=== PATIENT | male | born 1945 | race Caucasian/White ===

== ENCOUNTER 2017-03-03 18:44 | Emergency (ER) | payer OTHER, MEDICARE ==
[2017-03-03 19:32] LABS: Hematocrit 42 % (42-52); Hemoglobin 13.5 g/dl (14.0-18.0); Mean Corpuscular HGB Conc 32 g/dl (31-36); Mean Corpuscular Hemoglobin 29 pg (27-31); Mean Corpuscular Volume 90 fL (80-94); Mean Platelet Volume 9 um3 (7.4-10.4); Red Blood Count 4.63 10^6/ul (4.0-5.4); Red Cell Distribution Width 16 % (10.5-15); White Blood Count 5.6 10^3/ul (3.5-10.8)
[2017-03-03 19:35] VITALS: BP 97/61
[2017-03-03 19:47] LABS: Albumin 4.1 g/dL (3.2-5.2); BUN/Creatinine Ratio 23.6 (8-20); Calcium 9.1 mg/dL (8.6-10.3); EGFR African American 60.1 (>60); EGFR Non-African American 46.7 (>60); Potassium 4.2 mmol/L (3.5-5.0); Total Bilirubin 0.7 mg/dL (0.2-1.0); Total Protein 7.1 g/dL (6.4-8.9)
[2017-03-03 19:49] LABS: Troponin I 0.03 ng/mL (<0.04)
--- NOTE | 2017-03-03 19:57 | RAD ---
INDICATION: Short of breath COMPARISON: March 07, 2016 TECHNIQUE: PA and lateral dual-energy views were obtained. FINDINGS: Bones/Soft Tissues: There are no acute bony findings. There is a left-sided cardiac pacemaker/defibrillator. There is sternotomy/CABG Cardiomediastinal: The cardiac silhouette, central pulmonary vessels, and interstitium are mildly prominent consistent with mild interstitial congestion. Lungs: No focal consolidative changes. Pleura: There are no pleural effusions. Other: None IMPRESSION: POSTOPERATIVE CHANGES. MINOR INTERSTITIAL CONGESTION.
[2017-03-03] MEDS ORDERED: Furosemide IV* 10 MG/ML VIAL (40 MG) IV ONE (20:01)
--- NOTE | 2017-03-03 20:15 | ED ---
Alen Pride Alfonso, scribed for Gerhard Degroot MD on 03/03/17 at 1921 . Shortness of Breath - HPI Summary HPI Summary: This patient is a 72 year old male presenting to [facility] c/o worsening SOB which began two weeks ago. He reports "if I walk 20 feet I get tired." Symptoms aggravated by exertion and alleviated by nothing. He also c/o a throbbing frontal headache secondary to exertion and chest pain described as a discomfort. He denies using nasal cannula O2 at home. PMHx of sleep apnea, COPD , and CHF. - History of Current Complaint Chief Complaint: EDRespiratoryDistress Time Seen by Provider: 03/03/17 19:14 Hx Obtained From: Patient Onset/Duration: Sudden Onset, Lasting Weeks - 2 weeks, Worse Since Timing: Constant Current Severity: Mild Dyspnea At: Exertion Aggrevating Factors: Nothing - Exertion Alleviating Factors: Nothing Associated Signs & Symptoms: Chest Pain Unrelated to Cough - Discomfort - Allergy/Home Medications Allergies/Adverse Reactions: Allergies Allergy/AdvReac Type Severity Reaction Status Date / Time No Known Allergies Allergy Verified 10/19/14 22:22 PMH/Surg Hx/FS Hx/Imm Hx Endocrine/Hematology History: Reports: Hx Diabetes - TYPE 2, Hx Thyroid Disease - HYPO Denies: Hx Sickle Cell Disease Cardiovascular History: Reports: Hx Congestive Heart Failure, Hx Coronary Artery Disease, Hx Hypercholesterolemia, Hx Hypertension, Hx Pacemaker/ICD - 5/ 2016, Hx Syncope, Other Cardiovascular Problems/Disorders - CARDIOMYOPATHY, A- FIB Respiratory History: Reports: Hx Sleep Apnea - Central Sleep Apnea, Other Respiratory Problems/Disorders - FORMER SMOKER, QUIT 2001 History: Denies: Other Problems/Disorders Musculoskeletal History: Reports: Hx Arthritis - left pointer Denies: Other Musculoskeletal History Sensory History: Reports: Hx Contacts or Glasses Denies: Hx Hearing Aid Opthamlomology History: Reports: Hx Contacts or Glasses Neurological History: Denies: Other Neuro Impairments/Disorders - Surgical History Surgery Procedure, Year, and Place: DDD PACEMAKER. CABG 2001. SHOULDER - 1962. uvulectomy 2008 Hx Anesthesia Reactions: No - Immunization History Date of Tetanus Vaccine: Unsure Date of Influenza Vaccine: never Infectious Disease History: Denies: Traveled Outside the [place] in Last 30 Days - Family History Known Family History: Positive: Cardiac Disease, Diabetes - Social History Alcohol Use: None Substance Use Type: Reports: None Smoking Status (MU): Former Smoker Review of Systems Positive: Chest Pain Positive: Shortness Of Breath - worsening SOB aggravated by exertion Positive: Headache - throbbing frontal headache secondary to exertion All Other Systems Reviewed And Are Negative: Yes Physical Exam Triage Information Reviewed: Yes Vital Signs On Initial Exam: Initial Vitals Temp Pulse Resp BP Pulse Ox 97.2 F 79 17 147/81 95 03/03/17 18:48 03/03/17 18:48 03/03/17 18:48 03/03/17 18:48 03/03/17 18:48 Vital Signs Reviewed: Yes Appearance: Positive: Well-Appearing, No Pain Distress Skin: Positive: Warm Head/Face: Positive: Normal Head/Face Inspection Eyes: Positive: RYDER ENT: Positive: Hearing grossly normal Neck: Positive: Supple Respiratory/Lung Sounds: Positive: Clear to Auscultation, Breath Sounds Present Cardiovascular: Positive: RRR Abdomen Description: Positive: Nontender, Soft Bowel Sounds: Positive: Present Musculoskeletal: Positive: Edema Left - 1+, Edema Right - 1+ Neurological: Positive: Alert, Oriented to Person Place, Time Psychiatric: Positive: Affect/Mood Appropriate Diagnostics - Vital Signs Vital Signs Temp Pulse Resp BP Pulse Ox 03/03/17 19:01 28 93 03/03/17 19:00 81 90 03/03/17 18:58 84 91 03/03/17 18:57 121/79 03/03/17 18:48 97.2 F 79 17 147/81 95 - Laboratory Lab Results: Lab Results 03/03/17 03/03/17 03/03/17 Range/Units 19:00 19:00 19:00 WBC 5.6 (3.5-10.8) 10^3/ul RBC 4.63 (4.0-5.4) 10^6/ul Hgb 13.5 L (14.0-18.0) g/dl Hct 42 (42-52) % MCV 90 (80-94) fL MCH 29 (27-31) pg MCHC 32 (31-36) g/dl RDW 16 H (10.5-15) % Plt Count 136 L (150-450) 10^3/ul MPV 9 (7.4-10.4) um3 Neut % (Auto) 74.7 (38-83) % Lymph % (Auto) 13.1 L (25-47) % Sibley % (Auto) 9.3 H (1-9) % Eos % (Auto) 1.7 (0-6) % Baso % (Auto) 1.2 (0-2) % Absolute Neuts (auto) 4.2 (1.5-7.7) 10^3/ul Absolute Lymphs (auto) 0.7 L (1.0-4.8) 10^3/ul Absolute Monos (auto) 0.5 (0-0.8) 10^3/ul Absolute Eos (auto) 0.1 (0-0.6) 10^3/ul Absolute Basos (auto) 0.1 (0-0.2) 10^3/ul Absolute Nucleated RBC 0 10^3/ul Nucleated RBC % 0 Sodium 137 (133-145) mmol/L Potassium 4.2 (3.5-5.0) mmol/L Chloride 104 (101-111) mmol/L Carbon Dioxide 25 (22-32) mmol/L Anion Gap 8 (2-11) mmol/L BUN 35 H (6-24) mg/dL Creatinine 1.48 H (0.67-1.17) mg/dL Est GFR ( Amer) 60.1 (>60) Est GFR (Non-Af Amer) 46.7 (>60) BUN/Creatinine Ratio 23.6 H (8-20) Glucose 292 H (70-100) mg/dL Calcium 9.1 (8.6-10.3) mg/dL Total Bilirubin 0.70 (0.2-1.0) mg/dL AST 18 (13-39) U/L ALT 16 (7-52) U/L Alkaline Phosphatase 76 (34-104) U/L Troponin I 0.03 (<0.04) ng/mL B-Natriuretic Peptide 322 H ( - 100) pg/mL Total Protein 7.1 (6.4-8.9) g/dL Albumin 4.1 (3.2-5.2) g/dL Globulin 3.0 (2-4) g/dL Albumin/Globulin Ratio 1.4 (1-3) Result Diagrams: 03/03/17 19:00 03/03/17 19:00 Lab Statement: Any lab studies that have been ordered have been reviewed, and results considered in the medical decision making process. - Radiology CXR Radiology Interpretation Completed By: Radiologist - POSTOPERATIVE CHANGES. MINOR INTERSTITIAL CONGESTION. - EKG 1932 Cardiac Rate: NL - BPM 80 EKG Rhythm: Sinus Rhythm EKG Interpretation: Nonspecific T-wave abnormalities 1901 Cardiac Rate: NL - BPM 80 EKG Rhythm: Sinus Rhythm EKG Interpretation: Nonspecific T-wave abnormalities negative Cardiac Rate: NL - BPM 80 EKG Rhythm: Sinus Rhythm EKG Interpretation: Nonspecific T-wave abnormalities 1932 Cardiac Rate: NL - BPM 80 EKG Rhythm: Sinus Rhythm EKG Interpretation: Nonspecific T-wave abnormalities 1 901 Cardiac Rate: NL - BPM 80 EKG Rhythm: Sinus Rhythm EKG Interpretation: Nonspecific T-wave abnormalities 19 01 Cardiac Rate: NL - BPM 80 EKG Rhythm: Sinus Rhythm EKG Interpretation: Nonspecific T-wave abnormalities 190 1 Cardiac Rate: NL - BPM 80 EKG Rhythm: Sinus Rhythm EKG Interpretation: Nonspecific T-wave abnormalities 1901 Cardiac Rate: NL - BPM 80 EKG Rhythm: Sinus Rhythm EKG Interpretation: Nonspecific T-wave abnormalities 1901 Cardiac Rate: NL - BPM 80 EKG Rhythm: Sinus Rhythm EKG Interpretation: Nonspecific T-wave abnormalities Re-Evaluation - Re-Evaluation First Eval Change: Improved - pt less sob, wants to go home Course/Dx - Course Assessment/Plan: A 72 year-old M presents to the ED with a CC of worsening SOB on exertion. He compains of a throbbing frontal headache secondary to exertion and chest pain described as a discomfort. A CXR reveals MINOR INTERSTITIAL CONGESTION. An EKG reveals NSR and nonspecific T-wave abnormalities. (add all other pertinent UA/lab results). Patient will be discharged home with follow up from Dr. Ayala. Pt is agreeable with this plan. - Diagnoses Provider Diagnoses: SOB (shortness of breath) Discharge - Discharge Plan Condition: Improved Disposition: HOME Patient Education Materials: Heart Failure (ED) Referrals: Duglas Ayala MD [Primary Care Provider] - 3 Days The documentation as recorded by the Alen wood Alfonso accurately reflects the service I personally performed and the decisions made by , Gerhard Degroot MD.
== END 2017-03-03 21:01 | disposition home or self-care (01) ==
LOC: ED 18:44
DX: R06.02 Shortness of breath (principal); Z95.0 Presence of cardiac pacemaker; J44.9 Chronic obstructive pulmonary disease, unspecified; I50.9 Heart failure, unspecified; E11.9 Type 2 diabetes mellitus without complications; E03.9 Hypothyroidism, unspecified; I25.10 Atherosclerotic heart disease of native coronary artery without angina pectoris; Z95.1 Presence of aortocoronary bypass graft; Z87.891 Personal history of nicotine dependence
CPT/HCPCS: 36415; 71020; 80053; 83880; 84484; 85025; 93005; 96374; 99283; J1940

== ENCOUNTER 2018-08-16 10:48 | Observation (INO) | payer OTHER ==
--- NOTE | 2018-08-16 11:42 | ED ---
Shortness of Breath - HPI Summary HPI Summary: A 73 y/o male presents to [facility] with a chief complaint of SOB on 08/16/18. He recently had labs done and was told he had CHF. On 08/14/18 he was told he had PNA of the right lung and was given abx. He also c/o cough saying that he has been coughing up phlegm and that it has been getting stuck in his throat. He states that sitting up alleviates his pain and movement aggravates his pain. He also admits to being a former smoker for 40 years quitting in 2001. He claims that he is breathing better today compared to earlier in the week. He denies leg swelling. - History of Current Complaint Chief Complaint: EDShortnessOfBreath Time Seen by Provider: 08/16/18 11:24 Hx Obtained From: Patient Onset/Duration: Sudden Onset, Lasting Hours, Lasting Days, Still Present Current Severity: Moderate Associated Signs & Symptoms: Cough (Productive) - Allergy/Home Medications Allergies/Adverse Reactions: Allergies Allergy/AdvReac Type Severity Reaction Status Date / Time No Known Allergies Allergy Verified 10/19/14 22:22 Home Medications: Home Medications Aspirin EC TAB* [Ecotrin EC Low Dose 81 MG*] 81 mg PO DAILY 08/16/18 [History Confirmed 08/16/18] Bumetanide TAB* [Bumex 1 MG TAB*] 0.5 mg PO DAILY 08/16/18 [History Confirmed ] Coenzyme Q10 (NF) [Th Co Q-10] 1 cap PO DAILY 08/16/18 [History Confirmed ] DOXYcycline CAP(*) [DOXYcycline 100MG CAP(*)] 100 mg PO BID 08/16/18 [History Confirmed 08/16/18] Dabigatran CAP(NF) [Pradaxa CAP(NF)] 150 mg PO BID 08/16/18 [History Confirmed 08/16/18] Insulin GLARGINE(*) [Lantus(*)] 60 units SUBCUT BID MDD 120 mg 08/16/18 [ History Confirmed 08/16/18] Levothyroxine TAB* [Synthroid TAB*] 150 mcg PO DAILY 08/16/18 [History Confirmed 08/16/18] Metoprolol Succinate XL TAB* [Toprol XL TAB*] 12.5 mg PO DAILY 08/16/18 [ History Confirmed 08/16/18] Red Yeast Rice 1,200 mg PO DAILY 08/16/18 [History Confirmed 08/16/18] Sacubitril/Valsartan (NF) [Entresto (NF)] 1 tab PO BID 08/16/18 [ History Confirmed 08/16/18] PMH/Surg Hx/FS Hx/Imm Hx Endocrine/Hematology History: Reports: Hx Diabetes - TYPE 2, Hx Thyroid Disease - HYPO Denies: Hx Sickle Cell Disease Cardiovascular History: Reports: Hx Congestive Heart Failure, Hx Coronary Artery Disease, Hx Hypercholesterolemia, Hx Hypertension, Hx Pacemaker/ICD - 5/ 2016, Hx Syncope, Other Cardiovascular Problems/Disorders - CARDIOMYOPATHY, A- FIB Respiratory History: Reports: Hx Sleep Apnea - Central Sleep Apnea, Other Respiratory Problems/Disorders - FORMER SMOKER, QUIT 2001 History: Denies: Other Problems/Disorders Musculoskeletal History: Reports: Hx Arthritis - left pointer Denies: Other Musculoskeletal History Sensory History: Reports: Hx Contacts or Glasses Denies: Hx Hearing Aid Opthamlomology History: Reports: Hx Contacts or Glasses Neurological History: Denies: Other Neuro Impairments/Disorders - Surgical History Surgery Procedure, Year, and Place: DDD PACEMAKER. CABG 2001. SHOULDER - 1962. uvulectomy 2007 Hx Anesthesia Reactions: No - Immunization History Date of Tetanus Vaccine: Unsure Date of Influenza Vaccine: never Infectious Disease History: No Infectious Disease History: Denies: Traveled Outside the [place] in Last 30 Days - Family History Known Family History: Positive: Cardiac Disease, Diabetes - Social History Alcohol Use: None Substance Use Type: Reports: None Smoking Status (MU): Former Smoker Review of Systems Positive: Shortness Of Breath, Cough Negative: Edema - legs All Other Systems Reviewed And Are Negative: Yes Physical Exam - Summary Physical Exam Summary: Appearance: The patient is well-nourished in no acute distress and in no acute pain. Skin: The skin is warm and dry and skin color reflects adequate perfusion. HEENT: The head is normocephalic and atraumatic. The pupils are equal and reactive. The conjunctivae are clear and without drainage. Nares are patent and without drainage. Mouth reveals moist mucous membranes and the throat is without erythema and exudate. The external ears are intact. The ear canals are patent and without drainage. The tympanic membranes are intact. Neck: The neck is supple with full range of motion and non-tender. There are no carotid bruits. There is no neck vein distension. Respiratory: Chest is non-tender. Lungs are clear to auscultation and breath sounds are symmetrical and equal. Cardiovascular: Peripheral edema. Heart is regular rate and rhythm. There is no murmur or rub auscultated. Pulses are symmetrical and equal. Abdomen: The abdomen is soft and non-tender. There are normal bowel sounds heard in all four quadrants and there is no organomegaly palpated. Musculoskeletal: Peripheral edema. There is no back tenderness noted. Extremities are non-tender with full range of motion. There is good capillary refill. There is no calf tenderness elicited. Neurological: Patient is alert and oriented to person, place and time. The patient has symmetrical motor strength in all four extremities. Cranial nerves are grossly intact. Deep tendon reflexes are symmetrical and equal in all four extremities. Psychiatric: The patient has an appropriate affect and does not exhibit any anxiety or depression. Triage Information Reviewed: Yes Vital Signs On Initial Exam: Initial Vitals Temp Pulse Resp BP Pulse Ox 96.2 F 79 28 136/75 95 08/16/18 10:51 08/16/18 10:51 08/16/18 10:51 08/16/18 10:51 08/16/18 10:51 Vital Signs Reviewed: Yes Diagnostics - Vital Signs Vital Signs Temp Pulse Resp BP Pulse Ox 08/16/18 11:19 78 23 156/79 91 08/16/18 11:17 59 08/16/18 10:51 96.2 F 79 28 136/75 95 - Laboratory Result Diagrams: 08/16/18 12:21 08/16/18 12:21 Lab Statement: Any lab studies that have been ordered have been reviewed, and results considered in the medical decision making process. - Radiology CXR Radiology Interpretation Completed By: Radiologist Summary of Radiographic Findings: FINDINGS SUGGESTIVE OF MILD CONGESTIVE HEART FAILURE. ED physician has reviewed this imaging report. - EKG 10:55 Cardiac Rate: NL - 77 bpm EKG Rhythm: Sinus Rhythm Summary of EKG Findings: Normal sinus rhythm, normal ST, no ectopy, no STEMI. Course/Dx - Course Course Of Treatment: Mr. Kelley was found to have an indeterminant troponin as well as some mild to moderate CHF. His BUN and creatinine are both elevated with an elevated ratio also and is unclear whether to hydrate him for diuresis. This is stressing his heart apparently. I asked the hospitalist to evaluate him for admission. - Diagnoses Provider Diagnoses: CHF (congestive heart failure) - Physician Notifications Discussed Care of Patient With: Shayna Gallegos Time Discussed With Above Provider: 15:00 Instructed by Provider To: Admit As Inpatient - Critical Care Time Critical Care Time: 30-74 min Discharge - Sign-Out/Discharge Documenting (check all that apply): Patient Departure - Admit - Discharge Plan Condition: Fair Disposition: ADMITTED TO [facility] Referrals: Liliane Reid MD [Primary Care Provider] - - Billing Disposition and Condition Condition: FAIR Disposition: Admitted to [facility] - Attestation Statements Document Initiated by Sharon: Yes Documenting Scribe: Renan Tellez Provider For Whom Sharon is Documenting (Include Credential): Rj Kaur MD Scribe Attestation: IRenan, scribed for Rj Kaur MD on 08/16/18 at 1619. Scribe Documentation Reviewed: Yes Provider Attestation: The documentation as recorded by the Renan wood accurately reflects the service I personally performed and the decisions made by me, Rj Kaur MD Status of Scribe Document: Viewed
[2018-08-16 12:35] LABS: ABS Basophils 0.1 10^3/ul (0-0.2); ABS Eosinophils 0 10^3/ul (0-0.6); ABS Lymphocytes 0.7 10^3/ul (1.0-4.8); ABS Monocytes 0.5 10^3/ul (0-0.8); ABS Neutrophils 5.5 10^3/ul (1.5-7.7); ABS Nucleated RBC 0 10^3/ul; Eosinophil % 0.6 %; Hematocrit 44 % (42-52); Hemoglobin 14.3 g/dl (14.0-18.0); Lymphocyte % 10.4 %; Mean Corpuscular HGB Conc 33 g/dl (31-36); Mean Corpuscular Hemoglobin 30 pg (27-31); Mean Corpuscular Volume 91 fL (80-94); Mean Platelet Volume 8.7 fL (7.4-10.4); Nucleated Red Blood Cells % 0; Platelet Count 144 10^3/ul (150-450); Red Blood Count 4.78 10^6/ul (4.00-5.40); Red Cell Distribution Width 16 % (10.5-15); White Blood Count 6.9 10^3/ul (3.5-10.8)
[2018-08-16 12:44] LABS: INR 1.56 (0.77-1.02)
[2018-08-16 12:52] LABS: EGFR Non-African American 57.7 (>60)
[2018-08-16] MEDS ORDERED: Furosemide IV* 10 MG/ML VIAL (40 MG) IV SLOW PU ONE (15:33)
[2018-08-16] MEDS ORDERED: Ondansetron INJ* 2 MG/ML VIAL IV PRN (15:33)
[2018-08-16] MEDS ORDERED: Dextrose 50% Syringe 50 ML* 25 GM/50 ML SYRINGE IV PUSH PRN (15:33)
[2018-08-16] MEDS ORDERED: Acetaminophen TAB* 325 MG PO PRN (15:33)
[2018-08-16] MEDS: Insulin LISPRO* 1 UNITS UNIT SUBCUT SCH (18:17)
[2018-08-16] MEDS: Insulin GLARGINE(*) 1 UNITS UNIT SUBCUT SCH (20:48)
[2018-08-16] MEDS: CMCS:Dabigatran CAP(NF) 150 MG CAP PO SCH (20:49)
[2018-08-16] MEDS: VALSARTAN PO SCH (20:49)
[2018-08-16] MEDS: DOXYcycline CAP(*) 100 MG PO SCH (20:49)
[2018-08-16] MEDS: SACUBITRIL PO SCH (20:49)
--- NOTE | 2018-08-16 21:01 | HP ---
CC: Dr. Reid; Dr. Ambriz * HISTORY AND PHYSICAL: DATE OF ADMISSION: 08/16/18 PRIMARY CARE PROVIDER: Dr. Reid. ATTENDING PHYSICIAN WHILE IN THE HOSPITAL: Dr. Shayna Gallegos.* (DICTATED BY LUIS A BOSCH NP) CONSULTING [employer] STOCK CLERK: Dr. Ambriz. CHIEF COMPLAINT: 1. Shortness of breath. 2. Cough. 3. Elevated BNP in the outpatient setting. HISTORY OF PRESENT ILLNESS: Mr. Kelley is a 73-year-old male patient with a history of CAD, UT, diabetes, hypertension, KALANI, pulmonary hypertension, TIA, history of CHF, also carries a history of cardiomyopathy. He presents today stating that last week or so, 2 to 3 weeks, he has noticed he has had cough, cold symptoms, stuffed up, runny nose, congested. He has been bringing up a rust-colored type sputum. He initially presented to his primary yesterday. He was evaluated there. Tests were obtained, but there was a concern presumably for pneumonia. He was started on doxycycline. He states that his cough is getting better. His sputum is clearing up, but he still noticing and he has been noticing this for the last couple of weeks, he has had progressive worsening shortness of breath, particularly with exertion. He notices that he gets short of breath when he is lying flat at night, and he notices that he feels better when he sits up. He has also noticed more again dyspnea on exertion, denied having any chest pain. He states he has gained about 12 pounds in the last month or so. He denies having any again pressure or heaviness. Denies any loss of consciousness. No palpitations. He denied having any fevers. He did admit to having some chills, but he was concerned because of the worsening breathing. Because of the elevated BNP, the patient was sent to the hospital today to be evaluated. He underwent imaging and was found to have a CHF on his x-ray and his BNP here was 400. Because of these findings and the fact that his troponin was mildly elevated, we were asked to evaluate for admission. PAST MEDICAL HISTORY: 1. CAD. 2. UT. 3. Diabetes. 4. Hypertension. 5. KALANI. 6. Pulmonary hypertension. 7. TIA. 8. History of CHF. 9. Cardiomyopathy. I am trying to pull up his records from the outpatient setting to get his last echo, but the last echo that I currently have access to was from 3 years ago and he has had one more recent in the outpatient setting. The last one 3 years ago, his EF was unable to be estimated at that point. 10. He does carry a history of AFib and hypothyroidism. PAST SURGICAL HISTORY: 1. He has had CABG. 2. Uvulectomy. 3. ICD pacemaker placement. HOME MEDICATIONS: According to the list that was provided includes: 1. Red yeast rice 1200 mg p.o. daily. 2. Toprol-XL 12.5 mg a day. 3. Synthroid 150 mcg p.o. daily. 4. Glucotrol 10 mg p.o. b.i.d. 5. Lantus 60 units subcu b.i.d. 6. Entresto 1 tablet p.o. b.i.d. 7. Doxycycline 100 mg p.o. b.i.d. 8. Pradaxa 150 mg p.o. b.i.d. 9. Coenzyme Q10 one capsule p.o. daily. 10. Bumex 0.5 mg p.o. daily. 11. Aspirin 81 mg daily. ALLERGIES TO MEDICATIONS: Include no known drug allergies. FAMILY HISTORY: Both his parents had heart disease, they both had congestive heart failure and they both were diabetic. SOCIAL HISTORY: He is a former smoker. He quit in 2001. He was a 2 pack a day smoker. He does not drink alcohol. His surrogate decision maker is his , Rosa. REVIEW OF SYSTEMS: There is no documented fever. He did admit to having chills. He denied having any significant weight change. There was no double vision. He denied having any ear discharge. There was rhinorrhea. There was sore throat. There was no chest pain. There was orthopnea. There was nocturnal dyspnea. There was no abdominal pain. There was no nausea and no vomiting. There was no dysuria, no frequency. There was no seizure. No loss of consciousness. No pruritus and no skin ulcerations. Review of 14 systems completed, all others were negative. PHYSICAL EXAMINATION GENERAL: At this time, Mr. Kelley is a 73-year-old male patient. He is sitting in the ED stretcher. He does not appear to be in any acute distress. He appears to be well-nourished and well-developed. VITAL SIGNS: Blood pressure 160/75, pulse 69, respirations were 24, O2 sat was 94%, and temperature 96.2. HEENT: Head is atraumatic, normocephalic. Eyes: EOMs intact. His sclerae are anicteric and not pale. Throat: Oral mucosa appears to be moist. No oropharyngeal erythema. NECK: Supple. LUNGS: Diminished in the bases. He had equal diaphragmatic expansion. HEART: Sounds, S1, S2. He had a regular rate and rhythm. He had no murmurs, rubs or gallops. ABDOMEN: His abdomen was soft. It was flat. It was nontender. His bowel sounds were present in all 4 quadrants. EXTREMITIES: He did have pretibial edema bilaterally, +2. He had 5/5 strength. NEUROLOGIC: He is awake, he is alert, he is oriented x3. His tongue is midline. Cardboard Inserter are equal. He had no gross focal deficits. SKIN: Intact. DIAGNOSTIC STUDIES/LAB DATA: His labs today are revealing WBC of 6.9, RBC of 4.78, hemoglobin of 14.3, hematocrit of 44, platelet count of 144. INR 1.56. His sodium of 140, potassium of 4.3, chloride of 107, bicarb 27, BUN of 28, creatinine of 1.23, glucose 119, lactic 1.0, calcium 9.2, total bili of 0.7, AST 17, ALT 13, alk phos 77. Troponin is 0.07. Looking back, his troponins have been as high as 0.44 in the past. CRP of 2.68, BNP of 440, albumin of 3.8. He did have a chest x-ray obtained today, which revealed impression, findings suggestive of a mild congestive heart failure. He had an EKG obtained today, which does show a sinus rhythm at a rate of [address], although he had diffuse T-wave flattening. They were upright in II, III, and aVF. Looking at his previous EKG, it is similar. He last saw his area secretary in April of this year. Echo was done on 05/10/18 and EF at that point was 20% to 25%. Old medical records reviewed. ASSESSMENT AND PLAN: Mr. Kelley is a 73-year-old male patient coming into the ED today with complaints of cough and shortness of breath. Evaluation found to be what appears to be in congestive heart failure. He will be admitted under inpatient status for: 1. Congestive heart failure exacerbation. I suspect this is probably being exacerbated by dietary indiscretion. He does freely admit that he adds salt to his meals. In addition to this, he has a recent pneumonia. My plan will be to diurese him with Lasix 40 IV daily, daily weights. I am not going to repeat the echo. He just had one in April. I will have Dr. Ambriz evaluate the patient. I will cycle his troponins. His troponin is probably mildly elevated secondary to his demand ischemia due to the fact of heart failure. 2. Recent diagnosis of pneumonia. I will continue his doxycycline. I have sent off legionella antigen and Strep pneumo antigen. I will check him for the flu as well and I will continue his doxycycline as he is improving. 3. Coronary artery disease. Continue his aspirin and beta-armando therapy. 4. Hypertension. Continue meds as prescribed. 5. Obstructive sleep apnea. He does not wear a mask. Continue supportive care. 6. History of transient ischemic attack. Continue with secondary prevention. 7. Cardiomyopathy. Continue his Entresto. Diurese as needed. Follow up with his primary area secretary. 8. Atrial fibrillation. He is in sinus rhythm. We will continue current medical regimen. 9. Hypothyroidism. Continue his Synthroid. He can follow up with his PCP. 10. Diabetes. He will be placed on a lispro sliding scale and continue his Lantus. 11. Fluids, electrolytes, and nutrition. He can have a heart healthy diet. 12. Code status. Full code. 13. DVT prophylaxis. He is on Pradaxa. TIME SPENT: Time spent on the admission was 60 minutes, greater than half the time spent [id number] with the patient, obtaining my history and physical, the other half time spent going over the plan of care with the patient, implementing plan of care. I discussed the plan of care with my attending, Dr. Gallegos. She is in agreement. LUIS A BOSCH, DAKSHA [id number]/[facility] #: [id number] YANET
--- NOTE | 2018-08-16 22:07 | CONS ---
CC: Dr. Ambriz; Dr. Reid; Hospitalist Service * CARDIOLOGY CONSULT: DATE OF CONSULT: 08/16/18 PRIMARY CARE PHYSICIAN: Dr. Reid. HISTORY OF PRESENT ILLNESS: I was asked by hospitalist service to this 73-year- old male who is known to me from before with known history of severe ischemic cardiomyopathy. His last reported EF was 20% to 25%, history of coronary artery disease, CABG in 2001. He is status post dual chamber ICD in 2015. He does have significant comorbidities. Apparently, he presented with not feeling quite well, some shortness of breath, some gaining weight, swelling in the lower extremities. He was hospitalized for congestive heart failure and also treatment for pneumonia. He gives no active symptoms of chest pain. No shortness of breath, no orthopnea, no PNDs, no dizziness, no syncope, no fever, no chills, no skin rash, no tremors, no hematochezia, no palpitations, no tachycardia is appreciated. PAST MEDICAL HISTORY: Extensive including ischemic cardiomyopathy, history of sleep apnea, history of COPD, ICD implantation, syncope in the past, atrial fibrillation, coronary artery disease, CABG, systemic atrial hypertension. Medical problems in the past massive inferior wall MN in 2001, history of CABG x4 with WADSWORTH to the LAD and MYCHAL to the RCA, saphenous venous graft to the OM1 and OM2. PAST SURGICAL HISTORY: Uvuloplasty for sleep apnea. MEDICATIONS: As an outpatient include: 1. Entresto 24/26 mg twice daily. 2. CoQ10 100 mg daily. 3. Aspirin 81 mg daily. 4. Lantus 100 units/mL 120 units daily. 5. Glipizide 10 mg twice day. 6. Red yeast rice 1200 mg twice a day. 7. Fish oil 1000 daily. 8. Metoprolol 25 mg half daily. 9. Pradaxa 150 mg twice daily. 10. Bumex 1 mg half every day. 11. Levothyroxine 150 mcg daily. His medications as an inpatient include: 1. Aspirin 81 mg daily. 2. Pradaxa 150 mg twice a day. 3. Vibramycin 100 mg twice a day. 4. Lasix 40 mg IV daily. 5. Lantus 60 units subcu twice a day. 6. Humalog subcu sliding scale. 7. Levothyroxine 150 mcg daily. 8. Metoprolol 12.5 mg daily. 9. Entresto b.i.d. ALLERGIES: No known drug allergies. FAMILY HISTORY: No family history of premature CAD, although his father at age 67 of massive heart attack. SOCIAL HISTORY: He lives with . Used to smoke, he quit many years ago in 2001, no alcohol, no history of illicit drug use. REVIEW OF SYSTEMS: Review of all other systems essentially is negative. PHYSICAL EXAM: He is awake, alert, and oriented. He is not in any acute distress. His vitals: blood pressure 147/89; pulse 78, respiratory rate 16; temperature 98.6. Head and Neck Exam: Normocephalic, atraumatic head. Ears, nose, and throat essentially benign. Neck is supple. JVP is not elevated. No carotid bruits. Chest: Diminished air entry at the bases with some rhonchi. Heart: Normal. S1, S2. No added sounds. No gallops, no rubs. Abdomen: Obese, soft. Positive bowel sounds. Extremities: +1 to +2 edema. SUPERVISOR SCREEN MAKING: No focal deficit. Skin exam is normal. Psych: Normal effect and mood. DIAGNOSTIC STUDIES/LAB DATA: White blood cell 6.9, hemoglobin 14.3, hematocrit 44, and the platelets 144. Chemistry showed the following, sodium 140, potassium 4.3, carbon dioxide 27, BUN 28, creatinine 1.23, sugar 119, LFTs normal, troponin 0.07s and 0.09s, and 0.08. BNP 440. Chest x-ray was reported the patient to have mild congestive heart failure. His EKG from today showed the patient to be in sinus rhythm, first-degree AV block, poor R-wave progression, left anterior fascicular block. IMPRESSION: The patient is 73-year-old male patient, who is known to me with extensive cardiac history with: 1. Mild congestive heart failure, possible pneumonia few days ago in a patient who does have known history of severe ischemic cardiomyopathy. 2. Last reported EF from April 2018 20% to 25%. 3. Status post ICD implantation, dual chamber in 2014. 4. Large anterior wall myocardial infarction in the past. 5. History of CABG in 2001 with WADSWORTH to the LAD, saphenous venous graft to OM1 and OM2 and MYCHAL to the RCA. 6. Peripheral vascular disease. 7. Obesity. 8. Sleep apnea. 9. Chronic obstructive sleep apnea. 10. Mild mitral insufficiency and mild tricuspid insufficiency. 11. History of atrial fibrillation, he is on Pradaxa. His EKG today shows normal sinus rhythm, first-degree AV block. 12. Hyperlipidemia. 13. Systemic arterial hypertension. PLAN: Overall, he appears to be compensating. He does have some element of congestive heart failure, but he is not overtly in distress. I agree at the present time with the treatment, already initiated by hospitalist service, daily weights, Is and Os, keep a close eye on his electrolytes, potassium, magnesium, and his kidney function. Follow up echo as you are already doing. I believe his borderline troponin is related to his decompensating congestive heart failure and severe ischemic cardiomyopathy. He had no symptoms of chest pain and he had no significant EKG changes abnormalities compared to the last EKGs. We will follow him closely with you. I answered all his concerns and questions up to his satisfaction. TIME SPENT: More than half of at least 60 to 65 plus minutes was [id number] in the education and counseling mode discussing the acute medical management as well as the decision making. I discussed them with Salvador Cruz from the hospitalist service. [id number]/[facility] #: [id number] YANET
[2018-08-17] MEDS ORDERED: Levothyroxine TAB* 150 MCG TAB PO SCH (06:00)
[2018-08-17] MEDS: Insulin LISPRO* 1 UNITS UNIT SUBCUT SCH ×2 (07:32→12:51)
[2018-08-17 08:38] LABS: ABS Basophils 0.1 10^3/ul (0-0.2); ABS Eosinophils 0 10^3/ul (0-0.6); ABS Lymphocytes 0.7 10^3/ul (1.0-4.8); ABS Monocytes 0.6 10^3/ul (0-0.8); ABS Neutrophils 5.5 10^3/ul (1.5-7.7); ABS Nucleated RBC 0 10^3/ul; Eosinophil % 0.6 %; Hematocrit 43 % (42-52); Hemoglobin 14.4 g/dl (14.0-18.0); Lymphocyte % 9.9 %; Mean Corpuscular HGB Conc 33 g/dl (31-36); Mean Corpuscular Hemoglobin 30 pg (27-31); Mean Corpuscular Volume 91 fL (80-94); Mean Platelet Volume 8.5 fL (7.4-10.4); Nucleated Red Blood Cells % 0; Platelet Count 147 10^3/ul (150-450); Red Blood Count 4.77 10^6/ul (4.00-5.40); Red Cell Distribution Width 16 % (10.5-15); White Blood Count 6.9 10^3/ul (3.5-10.8)
[2018-08-17 08:44] LABS: INR 1.54 (0.77-1.02)
[2018-08-17 09:00] LABS: EGFR Non-African American 61.7 (>60)
[2018-08-17] MEDS ORDERED: Metoprolol Succinate XL TAB* 25 MG PO SCH (09:00)
[2018-08-17] MEDS ORDERED: Furosemide IV* 10 MG/ML VIAL (40 MG) IV SLOW PU SCH (09:00)
[2018-08-17] MEDS ORDERED: Aspirin EC TAB* 81 MG TAB.EC PO SCH (09:00)
[2018-08-17] MEDS: CMCS:Dabigatran CAP(NF) 150 MG CAP PO SCH (09:37)
[2018-08-17] MEDS: DOXYcycline CAP(*) 100 MG PO SCH (09:39)
[2018-08-17] MEDS: VALSARTAN PO SCH (09:40)
[2018-08-17] MEDS: SACUBITRIL PO SCH (09:40)
[2018-08-17] MEDS: Insulin GLARGINE(*) 1 UNITS UNIT SUBCUT SCH (09:44)
--- NOTE | 2018-08-17 11:26 | PN ---
Subjective Date of Service: 08/17/18 Interval History: Pt reports his SOB has resolved. He denies orthopnea which he was experiencing. He admits to "salting everything". Discussed that this is likely this cause of his exacerbation. He has been ambulating around the hallways. reports he feels "great" and would like to go home. Objective Active Medications: Acetaminophen (Tylenol Tab*) 650 mg PO Q4H PRN PRN Reason: FEVER/PAIN Aspirin (Aspirin Ec Tab*) 81 mg PO DAILY [facility] Last Admin: 08/17/18 09:35 Dose: 81 mg Dabigatran (Pradaxa Cap(Nf)) 150 mg PO BID [facility] Last Admin: 08/17/18 09:37 Dose: 150 mg Dextrose (D50w Syringe 50 Ml*) 12.5 gm IV PUSH .FOR FS < 60 - SS PRN PRN Reason: FS < 60 Doxycycline Hyclate (Vibramycin Cap(*)) 100 mg PO BID [facility] Last Admin: 08/17/18 09:39 Dose: 100 mg Insulin Glargine (Lantus(*)) 100 units SUBCUT Q24H [facility] Insulin Human Lispro (Humalog*) 0 units SUBCUT AC [facility]; Protocol Last Admin: 08/17/18 07:32 Dose: Not Given Levothyroxine Sodium (Synthroid Tab*) 150 mcg PO DAILY@0600 [facility] Last Admin: 08/17/18 05:19 Dose: 150 mcg Metoprolol Succinate (Toprol Xl Tab*) 12.5 mg PO DAILY [facility] Last Admin: 08/17/18 09:36 Dose: 12.5 mg Ondansetron HCl (Zofran Inj*) 4 mg IV Q6H PRN PRN Reason: NAUSEA Sacubitril/Valsartan (Entresto (Nf)) 1 tab PO BID [facility] Last Admin: 08/17/18 09:40 Dose: 1 tab Vital Signs - 8 hr 08/17/18 08/17/18 08/17/18 04:22 07:31 08:00 Temperature 98.0 F 97.5 F Pulse Rate 70 69 Respiratory 20 18 17 Rate Blood Pressure 101/59 128/62 (mmHg) O2 Sat by Pulse 90 94 Oximetry Oxygen Devices in Use Now: None Appearance: 73 to male A+O x3 in NAD Eyes: No Scleral Icterus, PERRLA Ears/Nose/Mouth/Throat: NL Teeth, Lips, Gums, Mucous Membranes Moist Neck: NL Appearance and Movements; NL JVP Respiratory: Symmetrical Chest Expansion and Respiratory Effort, Clear to Auscultation Cardiovascular: NL Sounds; No Murmurs; No JVD, RRR, No Edema Abdominal: NL Sounds; No Tenderness; No Distention Extremities: No Edema, No Clubbing, Cyanosis Skin: No Rash or Ulcers, No Nodules or Sclerosis Neurological: Alert and Oriented x 3, NL Sensation, NL Gait, NL Muscle Strength and Tone Lines/Tubes/Other Access: Clean, Dry and Intact Peripheral IV Nutrition: Taking PO's Result Diagrams: 08/17/18 08:07 08/17/18 08:07 Assess/Plan/Problems-Billing Assessment: 73 yo male who presented to the ER on 08/16 with a PMH of CAD, NM, DM , HTN, KALANI, Pulm HTN, CHF, TIA, severe ischemic cardiomyopathy with EF 20-25% who presented with c/o SOB, cough, elevated BNP who currently being treated as an outpt for PNA on doxy admitted for CHF exacerbation - Patient Problems (1) Acute exacerbation of CHF (congestive heart failure) Comment: - Resolved - mild exacerbation of acute of chronic systolic and diastolic CHF - suspect secondary to poor diet and doesnt adhere to low sodium diet. - BNP 440 but trending down from a week ago - recieved IV lasix 40 mg on admission. - appreciate cardilogy consult - who agrees with plan to send home and continue home medications - ok to not obtain echo at thsi time. (Dr. Ambriz who follows the pt as outpt) (2) CAP (community acquired pneumonia) Comment: - recently dx as outpt - symptoms improving - continue Doxy course (3) Diabetes Comment: - resume home meds on DC (4) HTN (hypertension) Comment: - continue home medications (5) Hypothyroidism Comment: - continue synthroid (6) Ischemic cardiomyopathy Comment: - EF 20-25% - continue home meds (7) Full code status (8) DVT prophylaxis Comment: Pradaxa Status and Disposition: patient is stable for DC to home.
[2018-08-17] MEDS ORDERED: Insulin GLARGINE(*) 1 UNITS UNIT SUBCUT SCH ×2 (12:00→21:00)
[2018-08-17 13:28] VITALS: BP 119/69
[2018-08-18] MEDS ORDERED: Insulin GLARGINE(*) 1 UNITS UNIT SUBCUT SCH (09:00)
--- NOTE | 2018-08-20 10:54 | DS ---
DISCHARGE SUMMARY: DATE OF ADMISSION: 08/16/18. DATE OF DISCHARGE: 08/17/18. PROVIDER: Peter Castro NP. ATTENDING PHYSICIAN: Dr. Arriola * (report dictated by Peter Castro NP). PRIMARY CARE PROVIDER: Dr. Reid. CONSULTING FRONT MAKER LOCKSTITCH: Dr. Ambriz. DISCHARGE DIAGNOSES: 1. Acute on chronic systolic and diastolic heart failure. 2. Severe ischemic cardiomyopathy with last known ejection fraction was 20 to 25%. SECONDARY DIAGNOSES: 1. Coronary artery disease, status post myocardial infarction. 2. Type 2 diabetes. 3. Hypertension. 4. Sleep apnea. 5. Pulmonary hypertension. 6. History of transient ischemic attack. 7. Cardiomyopathy. 8. History of atrial fibrillation, on Pradaxa. 9. Hypothyroidism. 10. Status post dual chamber ICD. 11. Status post CABG. 12. Peripheral vascular disease. HISTORY OF PRESENT ILLNESS AND HOSPITAL COURSE: Please see history and physical by Salvador Cruz NP, for full admission details, but in summary, this is a 73-year- old male, who presented to the emergency department on 08/16/18 with complaint of shortness of breath and cough, and was found to have an elevated BNP in the outpatient setting and was sent to the emergency department for further evaluation. The patient presented with report of having symptoms of shortness of breath and cough for the past 2 to 3 weeks. He also reported orthopnea. As well, he did report upper respiratory symptoms such as nasal congestion and rhinorrhea. He reports a mild cough. He reported that he was started on doxycycline as an outpatient. However, his shortness of breath continued to get progressively worse, especially on his exertion and reported orthopnea, and his outpatient BNP was noted to be 440 which is above his baseline and he was sent to the emergency department for further evaluation. He was admitted to the hospitalist service for acute on chronic systolic and diastolic heart failure. He was given 40 mg of IV Lasix on admission. The patient admits to "salting everything." He states that he does not adhere to a low salt diet and does recognize that he uses a lot of extra salt. He was seen in consultation by Dr. Ambriz, who follows him as an outpatient. It was thought that his borderline elevated troponin was related to his decompensating congestive heart failure and severe ischemic cardiomyopathy. He had no symptoms of chest pain and had no significant EKG changes compared to his last EKGs. Today on discharge, the patient reports that his symptoms have resolved and is ready to go home. It appears overall that he had a mild acute exacerbation of his congestive heart failure and this turned around very quickly. The patient has been getting education of adhering to a low salt diet. The patient has ambulated in the hallway, monitoring his pulse oximetry which has stayed above 95%. He also reports his orthopnea has resolved. The patient has not had any medication changes and recommendation is for a strict low salt diet. DISCHARGE MEDICATIONS: 1. Lantus 100 units subcu daily. 2. Red yeast rice 1200 mg p.o. daily. 3. Metoprolol succinate XL 12.5 mg p.o. daily. 4. Synthroid 150 mcg p.o. daily. 5. Glipizide 10 mg p.o. b.i.d. 6. Entresto one tab p.o. b.i.d. 7. Pradaxa 150 mg p.o. b.i.d. 8. Coenzyme Q10 one cap p.o. daily. 9. Bumex 0.5 mg p.o. daily. 10. Aspirin 81 mg p.o. daily. 11. Doxycycline 100 mg p.o. b.i.d. (the patient was instructed to finish the course that his primary care provider prescribed). DISCHARGE PLAN: 1. Low-salt diet. 2. Follow up with Dr. Liliane Reid within 3 to 5 days. 3. Follow up with merchandising assistant, Dr. Ambriz in 2 to 4 weeks. TIME SPENT: Approximately 60 minutes were spent on this discharge. PETER CASTRO, DAKSHA [id number]/[facility] #: [id number] YANET
== END 2018-08-17 14:35 | disposition home or self-care (01) ==
LOC: ED 10:48 → MEDTELE 15:26 → INTOOBSV 15:26 → UNDOADMIN 15:26
PROVIDERS: ADMIT Hospitalist; ATTEND Internal Medicine
DX: I50.43 Acute on chronic combined systolic (congestive) and diastolic (congestive) heart failure (principal); I25.5 Ischemic cardiomyopathy; R05 Cough; I25.10 Atherosclerotic heart disease of native coronary artery without angina pectoris; E11.9 Type 2 diabetes mellitus without complications; I25.2 Old myocardial infarction; R06.02 Shortness of breath; Z87.891 Personal history of nicotine dependence; I10 Essential (primary) hypertension; Z86.73 Personal history of transient ischemic attack (TIA), and cerebral infarction without residual deficits; I27.20 Pulmonary hypertension, unspecified; Z95.5 Presence of coronary angioplasty implant and graft; Z79.01 Long term (current) use of anticoagulants; E03.9 Hypothyroidism, unspecified; Z79.82 Long term (current) use of aspirin; Z95.0 Presence of cardiac pacemaker
CPT/HCPCS: 36415; 71046; 80048; 80053; 83605; 83880; 84484; 85025; 85610; 86140; 87040; 87899; 93005; 99284; A9270-GY; G0378; J1940

== ENCOUNTER 2020-12-06 15:02 | Inpatient (IN) ==
[2020-12-06 16:45] LABS: ABS Lymphocytes 0.3 10^3/ul (1.0-4.8); ABS Monocytes 0.5 10^3/ul (0-0.8); Eosinophil % 0.2 %; Hematocrit 37 % (42-52); Hemoglobin 11.3 g/dL (14.0-18.0); Lymphocyte % 4.2 %; Mean Corpuscular HGB Conc 31 g/dL (31-36); Mean Corpuscular Hemoglobin 24 pg (27-31); Mean Corpuscular Volume 78 fL (80-94); Platelet Count 172 10^3/uL (150-450); Red Blood Count 4.72 10^6 /uL (4.18-5.48); Red Cell Distribution Width 19 % (10-15); White Blood Count 6.8 10^3/uL (3.5-10.8)
[2020-12-06 17:06] LABS: ALT 8 U/L (7-52); AST 25 U/L (13-39); Albumin/Globulin Ratio 1.5 (1-3); Alkaline Phosphatase 90 U/L (34-104); Anion Gap 7 mmol/L (2-11); BUN/Creatinine Ratio 27.1 (8-20); Blood Urea Nitrogen 39 mg/dL (6-24); CO2 Carbon Dioxide 25 mmol/L (22-32); Calcium 9.1 mg/dL (8.6-10.3); Chloride 106 mmol/L (101-111); Creatine Kinase 505 U/L (10-223); EGFR African American 57.9 (>60); EGFR Non-African American 47.8 (>60); Globulin 2.7 g/dL (2-4); Glucose 150 mg/dL (70-100); Magnesium 2.4 mg/dL (1.9-2.7); Potassium 4.8 mmol/L (3.5-5.0); Sodium 138 mmol/L (135-145); Total Protein 6.7 g/dL (6.4-8.9)
[2020-12-06 17:13] LABS: Troponin I 2.85 ng/mL (<0.03)
[2020-12-06 17:33] LABS: TSH Ultra Thyroid Stim Horm 0.33 mcIU/mL (0.34-5.60)
[2020-12-06] MEDS ORDERED: NS 0.9% 1000 ml BAG 1,000 ML IV ONE (17:34)
[2020-12-06] MEDS ORDERED: Iodixanol (CONTRAST) 320 MG/ML 100 ML SDV IV ONE (18:32)
[2020-12-06 18:54] LABS: CKMB ng/mL 28.3 ng/mL (0.6-6.3)
[2020-12-06] MEDS ORDERED: Ondansetron 4 mg VIAL 2 MG/ML 2 ml VIAL IV PRN (19:59)
[2020-12-06 20:02] LABS: Troponin I 3.63 ng/mL (<0.03)
[2020-12-06] MEDS ORDERED: Dextrose 50% Syringe 50 ml 25 GM/50 ML SYRINGE IV PUSH PRN (20:03)
[2020-12-06] MEDS ORDERED: BUMETANIDE PO SCH (21:00)
[2020-12-06] MEDS: Morphine ORAL.SOLN 10 mg 2 mg/ml UDC 5 ml (10 mg) PO PRN (22:13)
[2020-12-06 23:12] LABS: Creatine Kinase 538 U/L (10-223)
[2020-12-06 23:33] LABS: Troponin I 3.59 ng/mL (<0.03)
[2020-12-07 02:28] LABS: ABS Basophils 0.1 10^3/ul (0-0.2); ABS Eosinophils 0.1 10^3/ul (0-0.6); ABS Lymphocytes 0.5 10^3/ul (1.0-4.8); ABS Monocytes 0.5 10^3/ul (0-0.8); ABS Neutrophils 3.5 10^3/ul (1.5-7.7); Hematocrit 36 % (42-52); Lymphocyte % 11.3 %; Mean Corpuscular HGB Conc 31 g/dL (31-36); Mean Corpuscular Hemoglobin 24 pg (27-31); Mean Corpuscular Volume 77 fL (80-94); Mean Platelet Volume 8.3 fL (7.4-10.4); Platelet Count 151 10^3/uL (150-450); Red Cell Distribution Width 19 % (10-15); White Blood Count 4.8 10^3/uL (3.5-10.8)
[2020-12-07 02:59] LABS: Troponin I 4.08 ng/mL (<0.03)
[2020-12-07 06:57] LABS: Anion Gap 3 mmol/L (2-11); BUN/Creatinine Ratio 24.5 (8-20); Blood Urea Nitrogen 36 mg/dL (6-24); CO2 Carbon Dioxide 27 mmol/L (22-32); Calcium 8.5 mg/dL (8.6-10.3); Chloride 106 mmol/L (101-111); EGFR African American 56.5 (>60); EGFR Non-African American 46.7 (>60); Glucose 132 mg/dL (70-100); Potassium 4.5 mmol/L (3.5-5.0); Sodium 136 mmol/L (135-145)
[2020-12-07 07:18] LABS: Troponin I 3.56 ng/mL (<0.03)
[2020-12-07] MEDS ORDERED: Perflutren Lipid Microsphere 3 ML VIAL ONE (08:27)
[2020-12-07] MEDS ORDERED: Bumetanide IV 0.25 MG/ML 4 ml VIAL (1 mg) SLOW PUSH SCH (09:00)
[2020-12-07] MEDS: NFT: Empagliflozin (NF) 25 MG TABLET PO SCH (09:08)
[2020-12-07 09:42] LABS: Troponin I 3.07 ng/mL (<0.03)
[2020-12-07] MEDS: Aspirin EC 81 mg TAB.EC (enteric coated) PO SCH (10:14)
[2020-12-07] MEDS: Pentoxifylline CR 400 mg TAB 400 MG PO SCH ×3 (10:15→16:54)
[2020-12-07] MEDS: Insulin GLARGINE 100 un/ml 10 ml VIAL SUBCUT SCH (10:16)
[2020-12-07] MEDS: Collagenase 250 units/gm OINT 1 tube TOPICAL SCH (10:20)
[2020-12-07] MEDS: Morphine ORAL.SOLN 10 mg 2 mg/ml UDC 5 ml (10 mg) PO PRN (16:53)
[2020-12-07] MEDS: Bumetanide IV 0.25 MG/ML 4 ml VIAL (1 mg) SLOW PUSH SCH (20:42)
[2020-12-08] MEDS: Pentoxifylline CR 400 mg TAB 400 MG PO SCH ×3 (07:13→16:56)
[2020-12-08] MEDS: NFT: Empagliflozin (NF) 25 MG TABLET PO SCH (07:20)
[2020-12-08 07:26] LABS: BUN/Creatinine Ratio 28.7 (8-20); Calcium 8.4 mg/dL (8.6-10.3); EGFR African American 47.5 (>60); EGFR Non-African American 39.2 (>60); Potassium 4.5 mmol/L (3.5-5.0)
[2020-12-08] MEDS: Aspirin EC 81 mg TAB.EC (enteric coated) PO SCH (07:49)
[2020-12-08] MEDS: Collagenase 250 units/gm OINT 1 tube TOPICAL SCH (07:50)
[2020-12-08] MEDS: Insulin GLARGINE 100 un/ml 10 ml VIAL SUBCUT SCH (08:07)
[2020-12-08] MEDS ORDERED: CMCS: Dabigatran 150 mg CAP (NF) PO SCH (09:00)
[2020-12-08] MEDS ORDERED: Aminophylline 25 MG/ML VIAL ONE (09:22)
[2020-12-08] MEDS ORDERED: Regadenoson 0.4 MG/5 ML SYRINGE ONE (09:22)
[2020-12-08] MEDS: Bumetanide IV 0.25 MG/ML 4 ml VIAL (1 mg) SLOW PUSH SCH (10:50)
[2020-12-08] MEDS: CMCS: Dabigatran 150 mg CAP (NF) PO SCH (20:46)
[2020-12-09 06:45] LABS: BUN/Creatinine Ratio 32.1 (8-20); Calcium 8.6 mg/dL (8.6-10.3); EGFR African American 50.5 (>60); EGFR Non-African American 41.7 (>60); Magnesium 2.7 mg/dL (1.9-2.7); Potassium 4.9 mmol/L (3.5-5.0)
[2020-12-09] MEDS: NFT: Empagliflozin (NF) 25 MG TABLET PO SCH (08:05)
[2020-12-09] MEDS: Pentoxifylline CR 400 mg TAB 400 MG PO SCH ×3 (08:38→17:01)
[2020-12-09] MEDS: Aspirin EC 81 mg TAB.EC (enteric coated) PO SCH (08:38)
[2020-12-09] MEDS: CMCS: Dabigatran 150 mg CAP (NF) PO SCH ×2 (08:38→20:22)
[2020-12-09] MEDS: Bumetanide IV 0.25 MG/ML 4 ml VIAL (1 mg) SLOW PUSH SCH (08:39)
[2020-12-09] MEDS: Collagenase 250 units/gm OINT 1 tube TOPICAL SCH (08:39)
[2020-12-09] MEDS: Insulin GLARGINE 100 un/ml 10 ml VIAL SUBCUT SCH (08:52)
[2020-12-09] MEDS ORDERED: Senna TAB 8.6 mg TAB PO PRN (12:27)
[2020-12-09] MEDS ORDERED: Magnesium Hydroxide LIQ 30 ML UDC PO PRN (12:27)
[2020-12-10 06:10] LABS: Anion Gap 6 mmol/L (2-11); BUN/Creatinine Ratio 35.7 (8-20); Blood Urea Nitrogen 55 mg/dL (6-24); CO2 Carbon Dioxide 24 mmol/L (22-32); Calcium 8.3 mg/dL (8.6-10.3); Chloride 106 mmol/L (101-111); Creatine Kinase 170 U/L (10-223); EGFR African American 53.6 (>60); EGFR Non-African American 44.3 (>60); Glucose 143 mg/dL (70-100); Potassium 4.6 mmol/L (3.5-5.0); Sodium 136 mmol/L (135-145)
[2020-12-10] MEDS: Collagenase 250 units/gm OINT 1 tube TOPICAL SCH (07:45)
[2020-12-10] MEDS: Bumetanide IV 0.25 MG/ML 4 ml VIAL (1 mg) SLOW PUSH SCH (07:46)
[2020-12-10] MEDS: Insulin GLARGINE 100 un/ml 10 ml VIAL SUBCUT SCH (07:46)
[2020-12-10] MEDS: Aspirin EC 81 mg TAB.EC (enteric coated) PO SCH (07:47)
[2020-12-10] MEDS: Pentoxifylline CR 400 mg TAB 400 MG PO SCH ×3 (07:50→16:53)
[2020-12-10] MEDS: CMCS: Dabigatran 150 mg CAP (NF) PO SCH ×2 (07:50→20:19)
[2020-12-10] MEDS: NFT: Empagliflozin (NF) 25 MG TABLET PO SCH (08:38)
[2020-12-11] MEDS: Aspirin EC 81 mg TAB.EC (enteric coated) PO SCH (09:47)
[2020-12-11] MEDS: Pentoxifylline CR 400 mg TAB 400 MG PO SCH ×3 (09:48→18:16)
[2020-12-11] MEDS: Insulin GLARGINE 100 un/ml 10 ml VIAL SUBCUT SCH (09:49)
[2020-12-11] MEDS: CMCS: Dabigatran 150 mg CAP (NF) PO SCH ×2 (09:50→20:23)
[2020-12-11] MEDS: NFT: Empagliflozin (NF) 25 MG TABLET PO SCH (09:50)
[2020-12-11] MEDS: Collagenase 250 units/gm OINT 1 tube TOPICAL SCH (09:51)
[2020-12-11] MEDS: Bumetanide IV 0.25 MG/ML 4 ml VIAL (1 mg) SLOW PUSH SCH (10:03)
[2020-12-12] MEDS: Pentoxifylline CR 400 mg TAB 400 MG PO SCH ×3 (10:21→16:51)
[2020-12-12] MEDS: CMCS: Dabigatran 150 mg CAP (NF) PO SCH ×2 (10:22→21:17)
[2020-12-12] MEDS: Insulin GLARGINE 100 un/ml 10 ml VIAL SUBCUT SCH (10:23)
[2020-12-12] MEDS: Aspirin EC 81 mg TAB.EC (enteric coated) PO SCH (10:23)
[2020-12-12] MEDS: NFT: Empagliflozin (NF) 25 MG TABLET PO SCH (10:24)
[2020-12-12] MEDS: Collagenase 250 units/gm OINT 1 tube TOPICAL SCH (10:24)
[2020-12-13] MEDS: NFT: Empagliflozin (NF) 25 MG TABLET PO SCH (07:30)
[2020-12-13] MEDS: Aspirin EC 81 mg TAB.EC (enteric coated) PO SCH (08:53)
[2020-12-13] MEDS: Pentoxifylline CR 400 mg TAB 400 MG PO SCH ×3 (08:53→17:53)
[2020-12-13] MEDS: Insulin GLARGINE 100 un/ml 10 ml VIAL SUBCUT SCH (08:54)
[2020-12-13] MEDS: CMCS: Dabigatran 150 mg CAP (NF) PO SCH ×2 (08:54→21:08)
[2020-12-13] MEDS: Collagenase 250 units/gm OINT 1 tube TOPICAL SCH (08:54)
[2020-12-14 08:01] LABS: Total Iron Binding Capacity 336 mcg/dL (250-450); Transferrin 240 mg/dL (203-362)
[2020-12-14 08:11] LABS: % Iron Saturation 6 % (15-55); Iron < 20 ug/dL (50-212); Unsaturated Iron Binding < 321 ug/dL
[2020-12-14 08:22] LABS: Ferritin 59.7 ng/mL (24-336)
[2020-12-14] MEDS: Insulin GLARGINE 100 un/ml 10 ml VIAL SUBCUT SCH (08:37)
[2020-12-14] MEDS: Pentoxifylline CR 400 mg TAB 400 MG PO SCH ×2 (08:39→12:14)
[2020-12-14] MEDS: CMCS: Dabigatran 150 mg CAP (NF) PO SCH (08:39)
[2020-12-14] MEDS: Collagenase 250 units/gm OINT 1 tube TOPICAL SCH (08:39)
[2020-12-14] MEDS: NFT: Empagliflozin (NF) 25 MG TABLET PO SCH (08:39)
[2020-12-14] MEDS: Aspirin EC 81 mg TAB.EC (enteric coated) PO SCH (08:39)
[2020-12-14 12:34] VITALS: BP 120/64
== END 2020-12-14 15:15 | DRG 558 ==
LOC: ED 15:02 → MEDTELE 15:02
PROVIDERS: ADMIT Internal Medicine; ATTEND Internal Medicine

== ENCOUNTER 2021-03-18 15:26 | Inpatient (IN) ==
[2021-03-18 18:26] LABS: Hematocrit 33 % (42-52); Hemoglobin 10.6 g/dL (14.0-18.0); Mean Corpuscular HGB Conc 32 g/dL (31-36); Mean Corpuscular Hemoglobin 28 pg (27-31); Mean Corpuscular Volume 87 fL (80-94); Mean Platelet Volume 8.2 fL (7.4-10.4); Platelet Count 155 10^3/uL (150-450); Red Blood Count 3.82 10^6 /uL (4.18-5.48); Red Cell Distribution Width 18 % (10-15); White Blood Count 3.6 10^3/uL (3.5-10.8)
[2021-03-18 18:39] LABS: ALT 15 U/L (7-52); AST 27 U/L (13-39); Albumin 3.5 g/dL (3.2-5.2); Albumin/Globulin Ratio 1.1 (1-3); Alkaline Phosphatase 75 U/L (35-149); Anion Gap 6 mmol/L (2-11); Blood Urea Nitrogen 79 mg/dL (6-24); CO2 Carbon Dioxide 25 mmol/L (22-32); Calcium 8.4 mg/dL (8.6-10.3); Chloride 105 mmol/L (101-111); EGFR African American 29.3 (>60); EGFR Non-African American 24.2 (>60); Globulin 3.1 g/dL (2-4); Glucose 118 mg/dL (70-100); Potassium 5.3 mmol/L (3.5-5.0); Sodium 136 mmol/L (135-145); Total Protein 6.6 g/dL (6.4-8.9)
[2021-03-18 18:43] LABS: Troponin I 4.19 ng/mL (<0.03)
[2021-03-18 18:48] LABS: ABS Eosinophils 0.1 10^3/ul (0-0.6); ABS Lymphocytes 0.4 10^3/ul (1.0-4.8); ABS Monocytes 0.5 10^3/ul (0-0.8); ABS Neutrophils 2.6 10^3/ul (1.5-7.7); Lymphocyte % 10.3 %
[2021-03-18 19:26] LABS: Activated Partial Thrombo Time 73.4 seconds (26.0-38.0); INR 2.36 (0.86-1.15)
[2021-03-18] MEDS ORDERED: Lactated Ringers 500 ml BAG 500 ML IV SCH (20:00)
[2021-03-18] MEDS ORDERED: Bumetanide IV 0.25 MG/ML 4 ml VIAL (1 mg) SLOW PUSH ONE (21:07)
[2021-03-18] MEDS ORDERED: Dextrose 50% Syringe 50 ml 25 GM/50 ML SYRINGE IV PUSH PRN (21:34)
[2021-03-18 21:49] LABS: Troponin I 4.24 ng/mL (<0.03)
[2021-03-18] MEDS: CMCS: Dabigatran 75 mg CAP (NF) PO SCH (23:43)
[2021-03-19 01:00] LABS: Troponin I 3.57 ng/mL (<0.03)
[2021-03-19 07:15] LABS: EGFR African American 31.6 (>60); EGFR Non-African American 26.1 (>60); Magnesium 3.1 mg/dL (1.9-2.7); Potassium 4.8 mmol/L (3.5-5.0)
[2021-03-19 07:51] LABS: Urine Appearance Cloudy; Urine Bilirubin Negative (Negative); Urine Blood Negative (Negative); Urine Color Yellow; Urine Glucose 1+(50 mg/dL) (Negative); Urine Ketones Negative (Negative); Urine Nitrite Negative (Negative); Urine Protein Negative (Negative); Urine Urobilinogen Negative (Negative)
[2021-03-19 08:03] LABS: Urine Creatinine Concentration 70.19 mg/dL
[2021-03-19] MEDS: Aspirin EC 81 mg TAB.EC (enteric coated) PO SCH (08:50)
[2021-03-19] MEDS: CMCS: Dabigatran 75 mg CAP (NF) PO SCH ×2 (08:51→20:28)
[2021-03-19] MEDS: Pentoxifylline CR 400 mg TAB 400 MG PO SCH ×3 (08:51→20:29)
[2021-03-19] MEDS: Bumetanide IV 0.25 MG/ML 4 ml VIAL (1 mg) SLOW PUSH SCH ×2 (08:51→14:39)
[2021-03-19] MEDS: COENZYME Q10 ENTER STREGNTH PO SCH (08:51)
[2021-03-19] MEDS: DIRECTIONS PO SCH (08:51)
[2021-03-19] MEDS ORDERED: Insulin GLARGINE 100 un/ml 10 ml VIAL SUBCUT SCH (09:00)
[2021-03-19] MEDS ORDERED: Perflutren Lipid Microsphere 3 ML VIAL ONE (15:04)
[2021-03-20] MEDS ORDERED: Ondansetron 4 mg VIAL 2 MG/ML 2 ml VIAL IV PRN (01:17)
[2021-03-20] MEDS ORDERED: Bumetanide IV 0.25 MG/ML 4 ml VIAL (1 mg) SLOW PUSH ONE (02:11)
[2021-03-20 03:04] LABS: ABS Eosinophils 0.1 10^3/ul (0-0.6); ABS Lymphocytes 0.4 10^3/ul (1.0-4.8); ABS Monocytes 0.5 10^3/ul (0-0.8); ABS Neutrophils 4.1 10^3/ul (1.5-7.7); Eosinophil % 2.1 %; Hematocrit 32 % (42-52); Hemoglobin 10.2 g/dL (14.0-18.0); Lymphocyte % 8.1 %; Mean Corpuscular HGB Conc 32 g/dL (31-36); Mean Corpuscular Hemoglobin 27 pg (27-31); Mean Corpuscular Volume 86 fL (80-94); Mean Platelet Volume 7.9 fL (7.4-10.4); Nucleated Red Blood Cells % 0.1; Platelet Count 167 10^3/uL (150-450); Red Blood Count 3.73 10^6 /uL (4.18-5.48); Red Cell Distribution Width 18 % (10-15); White Blood Count 5.2 10^3/uL (3.5-10.8)
[2021-03-20 03:29] LABS: ALT 14 U/L (7-52); AST 19 U/L (13-39); Albumin 3.4 g/dL (3.2-5.2); Albumin/Globulin Ratio 1.2 (1-3); Alkaline Phosphatase 70 U/L (35-149); Anion Gap 6 mmol/L (2-11); Blood Urea Nitrogen 85 mg/dL (6-24); CO2 Carbon Dioxide 24 mmol/L (22-32); Calcium 8.3 mg/dL (8.6-10.3); Chloride 107 mmol/L (101-111); Creatine Kinase 208 U/L (10-223); EGFR African American 36.7 (>60); EGFR Non-African American 30.4 (>60); Globulin 2.9 g/dL (2-4); Glucose 99 mg/dL (70-100); Potassium 4.6 mmol/L (3.5-5.0); Sodium 137 mmol/L (135-145); Total Protein 6.3 g/dL (6.4-8.9)
[2021-03-20 04:03] LABS: Troponin I 3.27 ng/mL (<0.03)
[2021-03-20 06:16] LABS: Calcium 8.1 mg/dL (8.6-10.3); EGFR African American 37.3 (>60); EGFR Non-African American 30.9 (>60); Magnesium 2.9 mg/dL (1.9-2.7)
[2021-03-20 06:35] LABS: Potassium 4.9 mmol/L (3.5-5.0)
[2021-03-20 06:45] LABS: TSH Ultra Thyroid Stim Horm 4.4 mcIU/mL (0.34-5.60)
[2021-03-20 06:47] LABS: Free T4 1.07 ng/dL (0.61-1.12)
[2021-03-20 07:01] LABS: PCO2 Arterial 43 mmHg (35-45); PO2 Arterial 82 mmHg (80-100)
[2021-03-20] MEDS: Bumetanide IV 0.25 MG/ML 4 ml VIAL (1 mg) SLOW PUSH SCH (08:09)
[2021-03-20] MEDS: COENZYME Q10 ENTER STREGNTH PO SCH (10:09)
[2021-03-20] MEDS: DIRECTIONS PO SCH (10:09)
[2021-03-20] MEDS: Insulin GLARGINE 100 un/ml 10 ml VIAL SUBCUT SCH (10:20)
[2021-03-20] MEDS: Aspirin EC 81 mg TAB.EC (enteric coated) PO SCH (10:20)
[2021-03-20] MEDS: CMCS: Dabigatran 75 mg CAP (NF) PO SCH ×2 (10:20→20:12)
[2021-03-20] MEDS: Pentoxifylline CR 400 mg TAB 400 MG PO SCH ×3 (10:20→20:13)
[2021-03-21 06:23] LABS: Hematocrit 31 % (42-52); Mean Corpuscular HGB Conc 33 g/dL (31-36); Mean Corpuscular Hemoglobin 28 pg (27-31); Mean Corpuscular Volume 86 fL (80-94); Mean Platelet Volume 8.1 fL (7.4-10.4); Platelet Count 157 10^3/uL (150-450); Red Blood Count 3.59 10^6 /uL (4.18-5.48); Red Cell Distribution Width 18 % (10-15); White Blood Count 4.8 10^3/uL (3.5-10.8)
[2021-03-21 06:41] LABS: Calcium 8.4 mg/dL (8.6-10.3); EGFR African American 37.5 (>60); Magnesium 2.8 mg/dL (1.9-2.7); Phosphorus 5.5 mg/dL (2.5-5.0); Potassium 4.5 mmol/L (3.5-5.0)
[2021-03-21] MEDS: Aspirin EC 81 mg TAB.EC (enteric coated) PO SCH (07:33)
[2021-03-21] MEDS: Pentoxifylline CR 400 mg TAB 400 MG PO SCH ×3 (07:33→20:06)
[2021-03-21] MEDS: CMCS: Dabigatran 75 mg CAP (NF) PO SCH ×2 (07:33→20:06)
[2021-03-21] MEDS: COENZYME Q10 ENTER STREGNTH PO SCH (07:36)
[2021-03-21] MEDS: DIRECTIONS PO SCH (07:36)
[2021-03-21] MEDS: Insulin GLARGINE 100 un/ml 10 ml VIAL SUBCUT SCH (09:07)
[2021-03-21 11:10] LABS: HDL Cholesterol 23.9 mg/dL
[2021-03-21] MEDS ORDERED: DOBUTamine 2000 MCG/ML IVPREMX 500 MG/250 ML BAG IV ONE (13:09)
[2021-03-21] MEDS ORDERED: DOBUTamine 2000 MCG/ML IVPREMX 500 MG/250 ML BAG IV SCH (14:00)
[2021-03-22 05:50] LABS: Calcium 8.1 mg/dL (8.6-10.3); EGFR African American 42.4 (>60); EGFR Non-African American 35.1 (>60); Magnesium 2.7 mg/dL (1.9-2.7); Phosphorus 4.4 mg/dL (2.5-5.0)
[2021-03-22] MEDS: DIRECTIONS PO SCH (08:57)
[2021-03-22] MEDS: Pentoxifylline CR 400 mg TAB 400 MG PO SCH ×2 (08:57→14:38)
[2021-03-22] MEDS: COENZYME Q10 ENTER STREGNTH PO SCH (08:57)
[2021-03-22] MEDS: Aspirin EC 81 mg TAB.EC (enteric coated) PO SCH (08:57)
[2021-03-22] MEDS: CMCS: Dabigatran 75 mg CAP (NF) PO SCH (08:57)
[2021-03-22] MEDS ORDERED: Bumetanide IV 0.25 MG/ML 4 ml VIAL (1 mg) SLOW PUSH ONE (10:00)
[2021-03-22 10:06] LABS: INR 1.84 (0.86-1.15)
[2021-03-22 16:34] VITALS: BP 119/59
[2021-03-23] MEDS ORDERED: Scopolamine PATCH Remove NOTE PATCH OFF ONE (03:00)
== END 2021-03-22 16:45 | disposition short-term general hospital (02) | DRG 291 ==
LOC: ED 15:26 → MEDTELE 21:21 → ICU 03-20 13:52
PROVIDERS: ADMIT Internal Medicine; ATTEND Internal Medicine